=== PATIENT | female | born 1980 | race Caucasian/White ===

== ENCOUNTER → 2020-02-27 15:05 | Outpatient (CLI) | payer MEDICAID, SELFPAY ==
[2020-02-27 14:34] VITALS: BMI 63.3
[2020-02-27 17:13] LABS: Vitamin D,25 Hydroxy 23.6 ng/mL
[2020-02-27 17:17] LABS: T4 Free Direct 1.06 ng/dL (0.76-1.46); Thyroid Stim Hormone (TSH) 6.06 uIU/mL (0.358-3.74)
== END ==
PROVIDERS: Referring Provider Internal Medicine Endocrinology, Diabetes & Metabolism; Visit Provider Internal Medicine Endocrinology, Diabetes & Metabolism
DX: E89.0 Postprocedural hypothyroidism (principal); E55.9 Vitamin D deficiency, unspecified
CPT/HCPCS: 36415; 82306; 84439; 84443

== ENCOUNTER → 2021-05-13 09:36 | Outpatient (CLI) | payer MEDICAID, SELFPAY ==
[2021-05-13 12:41] LABS: T4 Free Direct 1.47 ng/dL (0.76-1.46); Thyroid Stim Hormone (TSH) 1.35 uIU/mL (0.358-3.74)
== END ==
PROVIDERS: Internal Medicine Endocrinology, Diabetes & Metabolism; Referring Provider Nurse Practitioner Family; Visit Provider Nurse Practitioner Family
DX: E03.9 Hypothyroidism, unspecified (principal)
CPT/HCPCS: 36415; 84439; 84443